=== PATIENT | male | born 1975 | race Caucasian/White ===

== ENCOUNTER 2017-12-08 18:45 | Emergency (ER) | payer OTHER ==
[~2017-12-08] VITALS: Ht 188 cm; Wt 83.9 kg
[2017-12-08] MEDS ORDERED: IBUPROFEN800 MG PO (18:59)
[2017-12-08] MEDS ORDERED: NORCO 5-325 TA1 EACH PO (18:59)
[2017-12-08] MEDS ORDERED: PENICILLIN V P500 MG PO (19:00)
[2017-12-08] MEDS ORDERED: CLINDAMYCIN HC300 MG PO (19:11)
== END 2017-12-08 19:27 | disposition home or self-care (01) ==
LOC: ED 18:45
DX: K04.7 Periapical abscess without sinus (principal); F03.90 Unspecified dementia, unspecified severity, without behavioral disturbance, psychotic disturbance, mood disturbance, and anxiety; F17.200 Nicotine dependence, unspecified, uncomplicated; Z88.5 Allergy status to narcotic agent; Z79.2 Long term (current) use of antibiotics
CPT/HCPCS: 99283

== ENCOUNTER 2018-09-22 17:21 | Emergency (ER) | payer OTHER ==
[~2018-09-22] VITALS: Ht 188 cm; Wt 83.9 kg
[~2018-09-22 17:21] MED LIST: CLINDAMYCIN HC300 MG PO; IBUPROFEN800 MG PO; NORCO 5-325 TA1 EACH PO; PENICILLIN V P500 MG PO
--- OUTSIDE RECORDS SUMMARY | 2018-09-22 17:24 | XMS ---
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 [place] has no Care Guidelines for this patient. [place] VISIT COUNT (12 MO.) 2 [facility] 2 GINI Bautista TOTAL 4 NOTE: Visits indicate total known visits. 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
[2018-09-22] MEDS ORDERED: NORCO 5-325 TA1 EACH PO (18:21)
[2018-09-22] MEDS ORDERED: CYCLOBENZAPRINE10 MG PO (18:21)
== END 2018-09-22 18:55 | disposition home or self-care (01) ==
LOC: ED 17:21
DX: M53.3 Sacrococcygeal disorders, not elsewhere classified (principal); M54.5 Low back pain; F17.200 Nicotine dependence, unspecified, uncomplicated; Z88.5 Allergy status to narcotic agent; Z79.899 Other long term (current) drug therapy
CPT/HCPCS: 96372; 99283-25; J1885; J2550